=== PATIENT | male | born 1935 | race Two or more races ===

== ENCOUNTER 2016-10-08 10:18 | Inpatient (IN) | payer BC, MEDICAID ==
[~2016-10-08] VITALS: Ht 180.3 cm; Wt 90.7 kg
--- NOTE | 2016-10-08 10:18 | NUR ---
[id number] from home: aloc, bradycardia, low blood pressure, was unresponsive. bs 134 in field. pt given atropine 0.5 in field with some response. pacer pads placed. pt placed on monitor and gown. dr bah at bedside. ekg at bedside. iv right ac noted with saline flowing. continue to monitor.
[2016-10-08] MEDS ORDERED: ONDANSETRON HCL/PF 4 MG/2 ML VIAL ONE (10:24)
[2016-10-08] MEDS ORDERED: IV SET PRIMARY 1 EA INFUS.SET MC ONE (10:24)
[2016-10-08] MEDS ORDERED: IV NS 0.9% 1,000 ML ONE (10:24)
--- NOTE | 2016-10-08 10:25 | NUR ---
son at bedside. pt more alert and responsive at this time. vss.
[2016-10-08] MEDS ORDERED: IV NS 0.9% 1,000 ML BAG IV ONE (10:30)
[2016-10-08] MEDS ORDERED: ONDANSETRON HCL/PF 4 MG/2 ML VIAL IVP ONE (10:30)
[2016-10-08 10:50] LABS: BASOPHILS % (AUTO) 0.4 % (0.0-2.0); EOSINOPHILS # (AUTO) 0.1 /CMM (0.0-0.7); HEMATOCRIT 36 % (39-51); HEMOGLOBIN 12.5 g/dL (13.5-17.5); LYMPHOCYTES # (AUTO) 1.6 /CMM (0.8-4.8); LYMPHOCYTES % (AUTO) 24.4 % (20.0-44.0); MEAN CORPUSCULAR HEMOGLOBIN 33 PG (26.0-33.0); MEAN CORPUSCULAR HGB CONC 34 g/dl (31.0-36.0); MEAN CORPUSCULAR VOLUME 96 fL (80-96); MONOCYTES # (AUTO) 0.4 /CMM (0.1-1.30); MONOCYTES % (AUTO) 6.4 % (2.0-12.0); NEUTROPHILS # (AUTO) 4.3 /CMM (1.8-8.9); NEUTROPHILS % (AUTO) 66.8 % (43.0-81.0); PLATELET COUNT (AUTO) 114 /CMM (150-450); RDW COEFFICIENT OF VARIATION 10.9 (11.5-15.0); WHITE BLOOD COUNT (AUTO) 6.4 K/uL (4.3-11.0)
--- NOTE | 2016-10-08 10:54 | NUR ---
pt to ct
[2016-10-08 11:01] LABS: CALCIUM, SERUM 7.9 mg/dL (8.5-10.1); CARBON DIOXIDE 28 mmol/L (21-32); CHLORIDE 107 mmol/L (98-107); GLUCOSE 137 mg/dL (74-106); POTASSIUM 4.2 mmol/L (3.5-5.1); SODIUM SERUM 140 mmol/L (136-145); UREA NITROGEN, BLOOD 29 mg/dL (7-18)
[2016-10-08 11:03] LABS: INR 1.09 (0.87-1.13); PROTHROMBIN TIME 11.4 SECS (9.5-12.7)
[2016-10-08 11:08] LABS: TROPONIN I < 0.017 ng/mL (0.00-0.056)
[2016-10-08 11:13] LABS: LACTIC ACID 1.9 mmol/L (0.4-2.0)
[2016-10-08 11:21] LABS: ALANINE AMINOTRANSFERASE 13 U/L (12-78); ALBUMIN 3.2 g/dL (3.4-5.0); ALKALINE PHOSPHATASE 73 U/L (46-116); ASPARTATE AMINOTRANSFERASE 16 U/L (15-37); B-TYPE NATRIURETIC PEPTIDE 298 PG/ML (0-125); BILIRUBIN,DIRECT 0.2 mg/dL (0.0-0.2); BILIRUBIN,TOTAL 0.6 mg/dL (0.2-1.0); TOTAL PROTEIN, SERUM 6.5 g/dL (6.4-8.2)
--- NOTE | 2016-10-08 11:52 | NUR ---
DR PEDRO AT BEDSIDE
[2016-10-08] MEDS ORDERED: ASPIRIN 325 MG TABLET ONE (11:56)
[2016-10-08] MEDS ORDERED: ASPIRIN 325 MG TABLET PO ONE (12:00)
[2016-10-08] MEDS: ASPIRIN 81 MG TAB.CHEW PO SCH (12:00)
[2016-10-08] MEDS ORDERED: ONDANSETRON HCL/PF 4 MG/2 ML VIAL IVP PRN (12:00)
--- NOTE | 2016-10-08 12:02 | NUR ---
report given to stephie hope for louisa
[2016-10-08] MEDS ORDERED: PRAM0.258 PO (12:07)
[2016-10-08] MEDS ORDERED: RANI150C4 PO (12:07)
[2016-10-08] MEDS ORDERED: RANO10003 PO (12:07)
[2016-10-08] MEDS ORDERED: NITR0.4T6 SL (12:07)
--- NOTE | 2016-10-08 12:30 | NUR ---
SAFETY COORDINATOR NOTES RECEIVED PT FROM E.R. STAFF VIA [facility], AWAKE, ALERT AND ORIENTED, ACCOMPANIED BY FAMILY MEMBERS, ASSISTED TO BED, MADE COMFORTABLE, NO COMPLAINT OF PAIN, BREATHING PATTERN NORMAL AND NOT LABORED, ROOM SET UP ORIENTATION PROVIDED TO PT AND FAMILY, VERBALIZED UNDERSTANDING, VITAL SIGNS TAKEN AND RECORDED, NEEDS ATTENDED.
[2016-10-08 14:00] VITALS: BP 127/81
[2016-10-08 16:00] VITALS: BP 114/65
[2016-10-08] MEDS ORDERED: IV SET PRIMARY PUMP SET 1 EA INFUS.SET MC ONE (16:31)
[2016-10-08] MEDS: IV NS 0.9% 1,000 ML IV PRN (16:58)
--- NOTE | 2016-10-08 18:45 | NUR ---
CHILD CARE SUPERVISOR NOTES PT IN BED, RESTING, DENIES PAIN, NOT IN DISTRESS, TOLERATING CURRENT DIET WELL, SEEN BY DR. PEDRO, IV FLUIDS INFUSING WELL, CALL LIGHT WITHIN REACH, NEEDS ATTENDED.
[2016-10-08 19:00] VITALS: BP 148/82
--- NOTE | 2016-10-08 19:40 | NUR ---
RN OPENING NOTES RECEIVED REPORT FROM JAYDON RNLEONID. FOUND Pt AWAKE & ALERT IN BED. FAMILY AT BEDSIDE. Pt IS A/OX4, VERBAL, YAKUT SPEAKING ONLY. NO S/S OF ACUTE DISTRESS OR SOB NOTED. Pt DENIES ANY PAIN/CHEST PAIN AT THIS TIME. ON TELE SR 65. IV ACCESS ON RAC #18G, SL & L WRIST #20G WITH IVF NS @80ML/HR. SAFETY MEASURES IN PLACE. BED LOW, LOCKED, HOB ELEVATED, SIDE RAILS UP, CALL LIGHT WITHIN REACH. WILL CONTINUE TO MONITOR Pt THROUGHOUT THE NIGHT FOR SAFETY.
[2016-10-08 20:00] VITALS: BP 148/82
[2016-10-09] VITALS: BP 144/78
[2016-10-09 04:00] VITALS: BP 156/55
--- NOTE | 2016-10-09 06:56 | NUR ---
RN CLOSING NOTES NO SIGNIFICANT CHANGES NOTED DURING THE SHIFT. NO S/S OF ACUTE DISTRESS OR SOB NOTED. ALL NEEDS MET AND ATTENDED TO. SAFETY MEASURES IN PLACE. TELE READING SB 58 - SR 60's. WILL ENDORSE TO DAYSHIFT RN FOR Pt's RUTH ANN & SAFETY.
[2016-10-09 08:00] VITALS: BP 134/113
--- NOTE | 2016-10-09 08:01 | NUR ---
RN AM NOTES PATIENT RECEIVED AWAKE IN BED, ALERT AND ORIENTED X4. PATIENT ADMITTED WITH EPISODE OF SYNCOPE. NO MORE EPISODES AT THIS TIME. WILL CONTINUE TO MONITOR.
[2016-10-09] MEDS: ASPIRIN 81 MG TAB.CHEW PO SCH (09:37)
[2016-10-09] MEDS: IV NS 0.9% 1,000 ML IV PRN (09:37)
[2016-10-09 09:43] LABS: BASOPHILS % (AUTO) 0.1 % (0.0-2.0); EOSINOPHILS # (AUTO) 0.1 /CMM (0.0-0.7); EOSINOPHILS % (AUTO) 1.4 % (0.0-6.0); HEMATOCRIT 39 % (39-51); HEMOGLOBIN 13.4 g/dL (13.5-17.5); LYMPHOCYTES # (AUTO) 1.4 /CMM (0.8-4.8); MEAN CORPUSCULAR HEMOGLOBIN 33 PG (26.0-33.0); MEAN CORPUSCULAR HGB CONC 34 g/dl (31.0-36.0); MEAN CORPUSCULAR VOLUME 95 fL (80-96); MONOCYTES # (AUTO) 0.4 /CMM (0.1-1.30); NEUTROPHILS # (AUTO) 4.9 /CMM (1.8-8.9); NEUTROPHILS % (AUTO) 72.5 % (43.0-81.0); PLATELET COUNT (AUTO) 144 /CMM (150-450); RDW COEFFICIENT OF VARIATION 11.8 (11.5-15.0); WHITE BLOOD COUNT (AUTO) 6.8 K/uL (4.3-11.0)
[2016-10-09 09:51] LABS: CALCIUM, SERUM 8.7 mg/dL (8.5-10.1); CREATININE 1.9 mg/dL (0.6-1.3); POTASSIUM 4.1 mmol/L (3.5-5.1)
[2016-10-09 09:57] LABS: ALBUMIN 3.6 g/dL (3.4-5.0); BILIRUBIN,TOTAL 0.4 mg/dL (0.2-1.0); MAGNESIUM 2.1 mg/dL (1.8-2.4); PHOSPHORUS 2.3 mg/dL (2.5-4.9); TOTAL PROTEIN, SERUM 7.3 g/dL (6.4-8.2)
[2016-10-09 10:05] LABS: THYROID STIMULATING HORMONE 1.327 uIU/mL (0.358-3.74)
[2016-10-09] MEDS ORDERED: K PHOS NEUTRAL 250 MG TABLET PO ONE (12:00)
[2016-10-09 15:58] VITALS: BP 143/62
--- NOTE | 2016-10-09 16:06 | NUR ---
AIRLINE MECHANIC NOTES PATIENT LEFT HOSPITAL ACCOMPANIED BY FAMILY AND SHINGLES ROOFER IN WHEELCHAIR TO PRIVATE CAR. PATIENT IN STABLE CONDITION WITH PERSONAL BELONGINGS AND DISCHARGE PACKET. PATIENT LEFT HOSPITAL SAFELY.
== END 2016-10-09 15:50 | disposition home or self-care (01) | DRG 201 ==
LOC: ER 10:22 → MED 12:16 → TELE 12:55 → MED 10-09 08:42
PROVIDERS: ADMIT Internal Medicine; ATTEND Internal Medicine
DX: R00.1 Bradycardia, unspecified (principal); N17.0 Acute kidney failure with tubular necrosis; D64.9 Anemia, unspecified; I10 Essential (primary) hypertension; Z87.891 Personal history of nicotine dependence; G25.0 Essential tremor; E86.0 Dehydration; I25.10 Atherosclerotic heart disease of native coronary artery without angina pectoris; I34.0 Nonrheumatic mitral (valve) insufficiency; N40.0 Benign prostatic hyperplasia without lower urinary tract symptoms
CPT/HCPCS: 36415; 70450-TC; 71010-TC; 80048-TC; 80053-TC; 80061-TC; 80076-TC; 82962-TC; 83605-TC; 83735-TC; 83880; 84100-TC; 84439-TC; 84443-TC; 84484-TC; 85025-TC; 85730-TC; 86850-TC; 87040-TC; 87081-TC; 93307-TC; A4606; J2405; J7030; Z7610

== ENCOUNTER 2019-06-19 16:04 | Emergency (ER) | payer MEDICARE, OTHER ==
[~2019-06-19] VITALS: Ht 170.2 cm; Wt 81.6 kg
[~2019-06-19 16:04] MED LIST: PRAM0.258 PO; RANI150C4 PO; RANO10003 PO
[2019-06-19 16:13] VITALS: BP 132/87
--- NOTE | 2019-06-19 16:24 | NUR ---
ADRIANA EMT PERFORMING VISUAL ACUITY CURRENTLY
== END 2019-06-19 17:16 | disposition home or self-care (01) ==
LOC: ER 16:06
DX: H10.89 Other conjunctivitis (principal); B99.8 Other infectious disease; I10 Essential (primary) hypertension; F17.210 Nicotine dependence, cigarettes, uncomplicated; Z79.899 Other long term (current) drug therapy; Z71.6 Tobacco abuse counseling

== ENCOUNTER 2022-11-28 10:08 | Inpatient (IN) | payer MEDICARE, OTHER ==
[~2022-11-28] VITALS: Ht 170.2 cm; Wt 95.7 kg
--- NOTE | 2022-11-28 10:41 | NUR ---
IV ACCESS PLACED ON R HAND #18G. LAB AND BLOOD CULTURE DRAWN.
--- NOTE | 2022-11-28 10:42 | NUR ---
BLOOD SUGAR CHECK, 108.
--- NOTE | 2022-11-28 10:42 | NUR ---
COVID TEST COLLECTED AND SENT TO THE LAB
--- NOTE | 2022-11-28 10:43 | NUR ---
DAUGHTER AT BEDSIDE
[2022-11-28 10:59] LABS: BASOPHILS # (AUTO) 0.2 K/uL (0.0-0.2); BASOPHILS % (AUTO) 2.8 % (0.0-2.0); EOSINOPHILS % (AUTO) 1.8 % (0.0-6.0); HEMATOCRIT 32 % (39-51); HEMOGLOBIN 11.1 g/dL (13.5-17.5); LYMPHOCYTES # (AUTO) 0.7 K/uL (0.8-4.8); LYMPHOCYTES % (AUTO) 10.6 % (20.0-44.0); MEAN CORPUSCULAR HGB CONC 35 g/dl (31.0-36.0); MEAN CORPUSCULAR VOLUME 99 fL (80-96); MONOCYTES # (AUTO) 0.4 K/uL (0.1-1.30); NEUTROPHILS # (AUTO) 5.3 K/uL (1.8-8.9); NEUTROPHILS % (AUTO) 78.8 % (43.0-81.0); PLATELET COUNT (AUTO) 116 K/uL (150-450); RED BLOOD CELL COUNT(AUTO) 3.22 MIL/uL (4.5-6.0); WHITE BLOOD COUNT (AUTO) 6.7 K/uL (4.3-11.0)
[2022-11-28 11:02] LABS: CALCIUM, SERUM 8.9 mg/dL (8.5-10.1); CARBON DIOXIDE 25 mmol/L (21-32); CHLORIDE 108 mmol/L (98-107); CREATININE 1.7 mg/dL (0.6-1.3); GLUCOSE 135 mg/dL (74-106); POTASSIUM 4.5 mmol/L (3.5-5.1); SODIUM SERUM 142 mmol/L (136-145); UREA NITROGEN, BLOOD 29 mg/dL (7-18)
--- NOTE | 2022-11-28 11:16 | NUR ---
LACTIC ACID 2.3/ TROPONIN 2040. MADE AWARE
[2022-11-28] MEDS ORDERED: ENOXAPARIN SODIUM 80 MG/0.8 ML DISP.SYRIN SQ ONE ×2 (11:30→11:40)
[2022-11-28] MEDS ORDERED: FUROSEMIDE 40 MG/4 ML VIAL IV ONE (11:30)
[2022-11-28] MEDS ORDERED: ASPIRIN 81 MG TAB.CHEW PO ONE (11:30)
[2022-11-28] MEDS ORDERED: FUROSEMIDE 40 MG/4 ML VIAL ONE (11:40)
[2022-11-28] MEDS ORDERED: ASPIRIN 81 MG TAB.CHEW ONE (11:41)
[2022-11-28] MEDS ORDERED: MAG HYDROX/AL HYDROX/SIMETH 30 ML UDC PO PRN (13:00)
[2022-11-28] MEDS ORDERED: ACETAMINOPHEN 325 MG TABLET PO PRN (13:00)
[2022-11-28] MEDS ORDERED: Z GUARD REMEDY 4 OZ OINT TP PRN (13:00)
[2022-11-28] MEDS ORDERED: MAGNESIUM HYDROXIDE 30 ML UDC PO PRN (13:00)
[2022-11-28] MEDS ORDERED: ZOLPIDEM TARTRATE 5 MG TABLET PO PRN (13:00)
--- NOTE | 2022-11-28 13:12 | NUR ---
REPORT GIVEN TO EARL DIEZ.
[2022-11-28 13:30] VITALS: BP 149/93
--- NOTE | 2022-11-28 13:35 | NUR ---
RN NOTE- PT BROUGHT FROM ED FOR SOB, AFIB, AND CARDIAC EVALUATION. AOClinton,M FAROESE SPEAKING, FAMILY AT BEDSIDE, DENIES PAIN. . BEGIN ADMIT PROCESS.
--- NOTE | 2022-11-28 13:36 | NUR ---
PRODUCTION LINE NOTE 87 YEAR OLD MALE BROUGHT IN BY FAMILY FOR INCREASED SOB/WHEEZING. PT ADMITTED FOR DX NSTEMI. ON ARRIVAL PT A/OX4 INTERACTIVE AND DIRECTABLE. PT SPEAKS PASHTO. BP- 149/93, HR- ST 108, RR- 20, T- 97.7, 02 SATS 98% 2LPM VIA NC. PT DENIES PAIN. PMHX- AFIB, HTN, PARKINSON. IV #20 TO RT HAND. NO IVF AT PRESENT. AMBULATES TO BR THOUGH A BIT UNSTEADY. PT EVAL ORDERED. PLACED ON TELE MONITOR, LACTIC ACID 2.4, TROPONIN 2040. AWARE. ORDERS RECEIVED AND COMPLIED WITH. BED LOCKED, SIDE RAILS UP, CALL LIGHT IN REACH. MONITOR/ASSIST.
[2022-11-28] MEDS: PRAMIPEXOLE DI-HCL 0.25 MG TABLET PO SCH ×2 (13:50→16:42)
[2022-11-28] MEDS: CARVEDILOL 3.125 MG TABLET PO SCH ×2 (13:51→16:41)
--- NOTE | 2022-11-28 14:02 | NUR ---
PATIENT TRANSFERRED TO 322, STABLE.
[2022-11-28 14:27] LABS: BILIRUBIN,DIRECT 0.2 mg/dL (0.0-0.2); BILIRUBIN,TOTAL 1.1 mg/dL (0.2-1.0)
[2022-11-28 16:06] VITALS: BP 130/84
[2022-11-28] MEDS: RANOLAZINE 500 MG TAB.ER.12H PO SCH (16:41)
[2022-11-28] MEDS ORDERED: OMEP1CAP24 PO (16:43)
[2022-11-28] MEDS ORDERED: DONE10TA44 PO (16:43)
[2022-11-28] MEDS ORDERED: CYAN-51 PO (16:43)
[2022-11-28] MEDS ORDERED: DICL100G34 TP (16:43)
[2022-11-28] MEDS ORDERED: MAGN400T52 PO (16:43)
[2022-11-28] MEDS ORDERED: LOSA1TAB36 PO (16:43)
[2022-11-28] MEDS ORDERED: CHOL200010 PO (16:43)
[2022-11-28] MEDS ORDERED: LIDO30AD10 TP (16:43)
[2022-11-28] MEDS ORDERED: LINA72CA PO (16:43)
[2022-11-28] MEDS ORDERED: AMLO2.5T4 PO (16:43)
[2022-11-28] MEDS ORDERED: ATOR10TA PO (16:43)
[2022-11-28] MEDS ORDERED: QUET25TA PO (16:43)
[2022-11-28] MEDS ORDERED: ASPI-1420 PO (16:43)
[2022-11-28] MEDS ORDERED: FERR325T24 PO (16:43)
[2022-11-28] MEDS ORDERED: POLY15DR40 EACHEYE (16:43)
[2022-11-28] MEDS ORDERED: FOLI1TAB24 PO (16:43)
[2022-11-28] MEDS ORDERED: MECL-159 PO (16:43)
[2022-11-28] MEDS ORDERED: GABA300C PO (16:43)
[2022-11-28] MEDS: ONDANSETRON HCL/PF 4 MG/2 ML VIAL IVP PRN (18:48)
--- NOTE | 2022-11-28 19:08 | NUR ---
RN CLOSING NOTES NICA LAYING IN BED A/OX4. SPEAKS PERSIAN. FAMILY AT BEDSIDE TO HELP TRANSLATE. NO SIGNS OF SOB OR DISTRESS AT THE MOMENT. ON NC AT 2L 02 SATS 98% 2LPM VIA NC. PT DENIES PAIN. PMHX- AFIB, HTN, PARKINSON. IV #20 TO RT HAND. NO IVF AT PRESENT. AMBULATES TO BR THOUGH A BIT UNSTEADY. PT EVAL ORDERED. PLACED ON TELE MONITOR, LACTIC ACID 2.4, TROPONIN 2041. MD AWARE. ORDERS RECEIVED AND COMPLIED WITH. BED LOCKED, SIDE RAILS UP, CALL LIGHT IN REACH. WILL ENDORSE TO BOAT PERSON RUTH ANN.
--- NOTE | 2022-11-28 19:30 | NUR ---
FATS AND OILS LOADER OPENING NOTE RECEIVED PATIENT IN BED, AWAKE, ALERT AND ORIENTED, WITH DAUGHTER AT BEDSIDE. AFEBRILE AND NOT IN ANY FORM OF ACUTE DISTRESS. ON O2 INHALATION VIA NASAL CANNULA AT 2LPM. ON TELE MONITORING WITH CURRENT READING OF A-FIB 88. WITH IV ACCESS ON R HAND 20G-SL. SAFETY MEASURES IN PLACE. KEPT BED IN LOCKED AND IN LOW POSITION. SIDE RAILS UP X2. ADVISED TO USE THE CALL LIGHT WHEN IN NEED OF ASSISTANCE.
[2022-11-28 20:00] VITALS: BP 131/85
--- NOTE | 2022-11-28 20:58 | NUR ---
BUSINESS SUPPORT SPECIALIST NOTE CALLED PHARMACY TO CLARIFY ORDER FOR SEROQUEL THAT WAS SCHEDULED AT 2200 AND 2230 Q HS WITH THE SAME DOSE (25MG). PER PHARMACIST, IT MIGHT BE A DOUBLE ENTRY BUT JUST CLARIFY WITH MD. ALSO NOTIFIED CN AND ADVISED TO JUST GIVE 1 DOSE OF SEROQUEL 25MG HS SINCE THE ORDER IS THE SAME. NOTED AND CARRIED OUT.
[2022-11-28] MEDS: QUETIAPINE FUMARATE 25 MG TABLET PO SCH ×2 (21:38→21:39)
[2022-11-29] VITALS: BP 125/81
[2022-11-29 04:00] VITALS: BP 103/55
--- NOTE | 2022-11-29 06:20 | NUR ---
RECREATION AIDE CLOSING NOTE PATIENT IN BED, ASLEEP BUT EASY TO AROUSE AND RESPONSIVE. AFEBRILE AND NOT IN ANY FORM OF ACUTE DISTRESS. ON O2 INHALATION VIA NASAL CANNULA AT 2LPM. ON TELE MONITORING WITH CURRENT READING OF SR 69. WITH IV ACCESS ON R HAND 20G-SL. MEDICATED ORDERED. SAFETY MEASURES IN PLACE. KEPT BED IN LOCKED AND IN LOW POSITION. SIDE RAILS UP X2. ADVISED TO USE THE CALL LIGHT WHEN IN NEED OF ASSISTANCE. ALL NURSING NEEDS ATTENDED. ENDORSED TO INCOMING SHIFT FOR CONTINUITY OF CARE.
[2022-11-29 06:22] LABS: CALCIUM, SERUM 8.7 mg/dL (8.5-10.1); CARBON DIOXIDE 28 mmol/L (21-32); CHLORIDE 109 mmol/L (98-107); CREATININE 1.8 mg/dL (0.6-1.3); GLUCOSE 126 mg/dL (74-106); MAGNESIUM 2.2 mg/dL (1.8-2.4); PHOSPHORUS 3.6 mg/dL (2.5-4.9); POTASSIUM 4.1 mmol/L (3.5-5.1); SODIUM SERUM 143 mmol/L (136-145); UREA NITROGEN, BLOOD 29 mg/dL (7-18)
[2022-11-29 06:25] LABS: EOSINOPHILS % (AUTO) 2.1 % (0.0-6.0); HEMATOCRIT 28 % (39-51); HEMOGLOBIN 9.5 g/dL (13.5-17.5); LYMPHOCYTES % (AUTO) 38.3 % (20.0-44.0); MEAN CORPUSCULAR HGB CONC 34 g/dl (31.0-36.0); MEAN CORPUSCULAR VOLUME 101 fL (80-96); MONOCYTES # (AUTO) 0.5 K/uL (0.1-1.30); MONOCYTES % (AUTO) 10.2 % (2.0-12.0); NEUTROPHILS # (AUTO) 2.6 K/uL (1.8-8.9); NEUTROPHILS % (AUTO) 49.4 % (43.0-81.0); PLATELET COUNT (AUTO) 94 K/uL (150-450); RED BLOOD CELL COUNT(AUTO) 2.79 MIL/uL (4.5-6.0); WHITE BLOOD COUNT (AUTO) 5.3 K/uL (4.3-11.0)
[2022-11-29 07:30] VITALS: BP 119/70
--- NOTE | 2022-11-29 07:42 | NUR ---
OPENING NOTE PATIENT AWAKE A/Ox4, SLOVAK SPEAKING. DAUGHTER ABLE TO COMMUNICATE WITH PT, VIA PHONE, TO CONFIRM PATIENT UNDERSTOOD INFORMATION. ON 2L OF NC WITH NO S/S OF SOB. ON TELE CURRENTLY READING SR 86. IV ACCESS ON R HAND 20G, SL, INTACT AND PATENT, FLUSHING WELL. NO PAIN AT THE TIME. SKIN INTACT WITH BLE SWELLING. ON STRICT I&Os, USING URINAL. ABLE TO AMBULATE WITH ASSIST. FALL AND SAFETY PRECAUTIONS MAINTAINED: BED LOCKED AND AT THE LOWEST POSITION, SRx2, CALL LIGHT WITHIN REACH.
--- NOTE | 2022-11-29 08:05 | NUR ---
CRITICAL LAB CRITICAL LAB REPORTED BY DAKSHA MATA [id number]. REPORTED TO DR. BRITT. DR ACKNOWLEDGED ORDER. NO NEW ORDERS AT THIS TIME.
[2022-11-29] MEDS: GABAPENTIN 300 MG CAPSULE PO SCH ×2 (08:41→16:42)
[2022-11-29] MEDS: MAGNESIUM OXIDE 400 MG TABLET PO SCH ×2 (08:41→16:42)
[2022-11-29] MEDS: CARVEDILOL 3.125 MG TABLET PO SCH ×2 (08:41→16:43)
[2022-11-29] MEDS: PRAMIPEXOLE DI-HCL 0.25 MG TABLET PO SCH ×3 (08:41→12:58)
[2022-11-29] MEDS: AMLODIPINE BESYLATE 2.5 MG TABLET PO SCH (08:41)
[2022-11-29] MEDS: RANOLAZINE 500 MG TAB.ER.12H PO SCH ×2 (08:41→16:42)
[2022-11-29] MEDS: DONEPEZIL 5 MG TABLET PO SCH (08:41)
[2022-11-29] MEDS: ASPIRIN EC 81 MG TABLET.DR PO SCH (08:41)
[2022-11-29] MEDS: LIDOCAINE 5% (PATCH) 1 EA PATCH TP SCH (08:44)
[2022-11-29] MEDS ORDERED: ASPIRIN 81 MG TAB.CHEW PO SCH (09:00)
[2022-11-29] MEDS: FUROSEMIDE 40 MG/4 ML VIAL IV SCH (09:00)
[2022-11-29] MEDS ORDERED: Medication Not On Formulary EA (Linaclotide (Linzess) 72 MCG) PO SCH (09:00)
--- NOTE | 2022-11-29 09:07 | NUR ---
RN NOTE FUROSEMIDE ADMINISTERED FOR HEALTHCARE SOCIAL WORKER YADIEL, IV FLUSHING WELL, NO S/S OF INFILTRATION. PRIMARY NURSE YADIEL AWARE.
--- NOTE | 2022-11-29 09:47 | NUR ---
MEDICATION NOTE HELD CARVEDILOL, MONITORING BP.
[2022-11-29] MEDS: ENOXAPARIN SODIUM 80 MG/0.8 ML DISP.SYRIN SQ SCH (12:40)
--- NOTE | 2022-11-29 13:00 | NUR ---
MEDICATION NOTE PT REFUSED MEDICATION, STATING HE DOESN'T TAKE PARKINSON MEDICATION. FAMILY CALLED PRIMARY PHARMACY TO CONFIRM AND PRAMIPEXOLE ISNT BEING ADMINISTERED. MEDICATION WASTED.
[2022-11-29] MEDS: ONDANSETRON HCL/PF 4 MG/2 ML VIAL IVP PRN (14:31)
[2022-11-29 15:30] VITALS: BP 108/54
[2022-11-29 17:42] LABS: BILIRUBIN,URINE NEGATIVE (NEGATIVE); COLOR,URINE YELLOW (YELLOW); LEUKOCYTE ESTERASE ,URINE NEGATIVE (NEGATIVE); NITRITE, URINE NEGATIVE (NEGATIVE); PH,URINE 5.5 (5.0-8.0); PROTEIN,URINE NEGATIVE (NEGATIVE); UGLUCOSE NEGATIVE (NEGATIVE); UROBILINOGEN,URINE 0.2 EU/dL (0.2)
[2022-11-29 18:10] LABS: CREATININE, URINE 42.9 MG/DL (30.0-125.0)
[2022-11-29 18:19] LABS: EOSINOPHIL,URINE None Seen
--- NOTE | 2022-11-29 19:03 | NUR ---
CLOSING NOTE PATIENT AWAKE A/Ox4, YAKUT SPEAKING. DAUGHTER IN ROOM WITH PT. ON 2L OF NC WITH NO S/S OF SOB. ON TELE CURRENTLY READING SR 75. IV ACCESS ON R HAND 20G, SL, CLEAN AND INTACT. NO PAIN AT THE TIME. INTAKE: EST. 950 OUTPUT EST.1000. FALL AND SAFETY PRECAUTIONS MAINTAINED: BED LOCKED AND AT THE LOWEST POSITION, SRx2, CALL LIGHT WITHIN REACH.
[2022-11-29 20:00] VITALS: BP 101/60
--- NOTE | 2022-11-29 20:06 | NUR ---
Received Mr. Terrazas alert and orientated x4 daughter at nm side and she translates for me he ambulated the hallway w/o 02 sats 91 - 92% 02 nc replaced when back in room in bed new IV site left arm d/t SL rt hand was bothering him continent UA smiling and in good spirits SR on the tele monitor HR 75
[2022-11-29] MEDS: QUETIAPINE FUMARATE 25 MG TABLET PO SCH (21:34)
[2022-11-30] VITALS: BP 103/64
[2022-11-30 04:00] VITALS: BP 118/67
--- NOTE | 2022-11-30 04:59 | NUR ---
closing notes: alert and orientated X3 cooperative and friendly at the beginning of this 12 hr shift he ambulated in the hallway no SOB and w/o 02 sats 90% when asleep sats 89% w/o 02 wih 02 at 2 liters sat 98 -100% noted exp wheezing at times noted he will cough and the wheezing clears ankle edema 1+ ambulates with his can and stand by assist steady on his legs voided X1 at the beginning if the shift 200 ml in the urinal SR on the tele monitor HR 72 -75/beats per minute
--- NOTE | 2022-11-30 07:25 | NUR ---
ART GALLERY DIRECTOR OPENING NOTE RECEIVED PATIENT IN BED, SLEEPING, A/OX4. AFEBRILE, DENIES ANY PAIN OR DISCOMFORT, ON O2 AT 2LPM VIA NASAL CANNULA, NO SOB/ NOTED, BREATHING EVEN AND UNLABORED, PATIENT IS ON CUTTER OUT WITH CURRENT READING OFSR 65, WITH IV ACCESS ON LFA #20G AND ON SL, INTACT, PATENT AND FLUSHING WELL, SAFETY MEASURES IN PLACE, KEPT BED IN LOCKED AND IN LOW POSITION. SIDE RAILS UP X2, CALL LIGHT AND TABLE WITHIN EASY REACH, WILL CONTINUE TO MONITOR PATIENT.
[2022-11-30 08:30] VITALS: BP 107/73
[2022-11-30] MEDS: RANOLAZINE 500 MG TAB.ER.12H PO SCH ×2 (09:02→16:15)
[2022-11-30] MEDS: GABAPENTIN 300 MG CAPSULE PO SCH ×2 (09:02→16:14)
[2022-11-30] MEDS: DONEPEZIL 5 MG TABLET PO SCH (09:02)
[2022-11-30] MEDS: CARVEDILOL 3.125 MG TABLET PO SCH ×3 (09:03→17:00)
[2022-11-30] MEDS: MAGNESIUM OXIDE 400 MG TABLET PO SCH ×2 (09:03→16:14)
[2022-11-30] MEDS: ASPIRIN EC 81 MG TABLET.DR PO SCH (09:03)
[2022-11-30] MEDS: AMLODIPINE BESYLATE 2.5 MG TABLET PO SCH (09:03)
[2022-11-30] MEDS: FUROSEMIDE 40 MG/4 ML VIAL IV SCH (09:04)
[2022-11-30] MEDS: LIDOCAINE 5% (PATCH) 1 EA PATCH TP SCH (09:04)
[2022-11-30] MEDS: ENOXAPARIN SODIUM 80 MG/0.8 ML DISP.SYRIN SQ SCH (13:10)
[2022-11-30 16:08] VITALS: BP_SYST 104; BP_SYST 119; BP_DIAS 78
--- NOTE | 2022-11-30 18:39 | NUR ---
CLINICAL RESEARCH COORDINATOR CLOSING NOTE PATIENT IN BED, SLEEPING, A/OX4. AFEBRILE, DENIES ANY PAIN OR DISCOMFORT, ON O2 AT 2LPM VIA NASAL CANNULA, NO SOB/ NOTED, BREATHING EVEN AND UNLABORED, PATIENT IS ON HEPATOLOGIST WITH CURRENT READING OF SR WITH PAC'S 1 DEGREE HB WITH A HR OF 79, WITH IV ACCESS ON LFA #20G AND ON SL, INTACT, PATENT AND FLUSHING WELL, SAFETY MEASURES IN PLACE AND MAINTAINED AT ALL TIMES, KEPT BED IN LOCKED AND IN LOW POSITION. SIDE RAILS UP X2, CALL LIGHT AND TABLE WITHIN EASY REACH, SCHEDULED MEDICATIONS ADMINISTERED, PATEINT WAS TURNED AND REPOSITIONED PER PROTOCOL, ALL NEEDS ATTENDED AND ANTICIPATED, WILL ENDORSE TO REDUCING SALON ATTENDANT NURSE.
--- NOTE | 2022-11-30 19:35 | NUR ---
RN OPENING NOTE PATIENT AWAKE IN BED, DAUGHTER AT BEDSIDE. A/OX4. NO S/S OF DISTRESS, BREATHING WITHOUT DIFFICULTY ON 2L NC. LFA #20 SL INTACT AND PATENT. TELE READS SR 75 W/ PACs AND FIRST DEGREE AV BLOCK. SAFETY MEASURES IN PLACE: BED LOCKED AND AT LOWEST POSITION, RAILS UP X2, CALL HARTLEY WITHIN REACH. WILL CONTINUE TO MONITOR PATIENT.
[2022-11-30 20:00] VITALS: BP 117/76
[2022-11-30] MEDS: QUETIAPINE FUMARATE 25 MG TABLET PO SCH ×2 (21:42→22:30)
[2022-12-01] VITALS: BP 126/75
--- NOTE | 2022-12-01 01:10 | NUR ---
RN NOTE PATIENT HAS BECOME COMBATIVE. PATIENT TRIED SEVERAL TIMES TO STRIKE ME WITH HIS WALKING CANE. PATIENT HAS SLAMMED HIS ROOM DOOR AND BATHROOM DOOR. PATIENT DID NOT WANT TO GO TO BATHROOM, NOR WANTED TO HAVE ANYONE NEAR HIM. ON-CALL, ED, NOTIFIED. ORDER GIVEN FOR HALDOL 5MG IM.
[2022-12-01] MEDS ORDERED: HALOPERIDOL LACTATE INJ 5 MG/ML VIAL IM ONE (01:30)
--- NOTE | 2022-12-01 01:50 | NUR ---
RN NOTE HALDOL 5MG IM WAS ADMINISTERED. PATIENT BIT THIS RN IN THE PROCESS. PATIENT STABLE; WILL CONTINUE TO MONITOR PATIENT.
--- NOTE | 2022-12-01 03:05 | NUR ---
RN NOTE COMMUNICATED WITH ON-CALL, ED RCOOKS, REGARDING PATIENT'S BEHAVIOUR AND POSSIBLE PSYCH CONSULT D/T RECENT BEHAVIOUR. ON-CALL GAVE ORDER FOR PSYCH CONS. PATIENT O/W STABLE; WILL CONTINUE TO MONITOR PATIENT.
--- NOTE | 2022-12-01 04:01 | NUR ---
RN NOTE PATIENT REFUSED 0400 TELE VS. PATIENT IS STILL BEING MONITORED ON TELE. PATIENT O/W STABLE.
--- NOTE | 2022-12-01 06:25 | NUR ---
RN CLOSING NOTE PATIENT AWAKE IN BED. A/OX4. NO S/S OF DISTRESS, BREATHING WITHOUT DIFFICULTY ON 2L NC. LFA #20 SL INTACT AND PATENT. TELE READS SR 80 W/ PACs. SAFETY MEASURES IN PLACE: BED LOCKED AND AT LOWEST POSITION, RAILS UP X2, CALL HARTLEY WITHIN REACH. WILL ENDORSE TO NEXT SHIFT FOR RUTH ANN.
--- NOTE | 2022-12-01 07:12 | NUR ---
FASHION BUYER OPENING NOTES RECEIVED PATIENT AWAKE, SITTING CALM IN BED, A/O X4. PALAUAN SPEAKING. ABLE TO MAKE NEEDS KNOWN. TOLERATING ROOM AIR , NOT IN ANY FORM OF DISTRESS AT THIS TIME. NO SOB NOTED, BREATHING EVEN AND UNLABORED. WITH IV ACCESS LEFT FOREARM #20G ON SALINE LOCKED. PATIENT DENIES PAIN AT THIS TIME. SAFETY PRECAUTIONS IN PLACE: BED LOCKED AND IN LOW POSITION, SIDE RAILS UP X2, CALL LIGHT WITHIN REACH. WILL CONTINUE WITH THE PLAN OF CARE.
[2022-12-01 08:16] VITALS: BP 139/83
[2022-12-01] MEDS: GABAPENTIN 300 MG CAPSULE PO SCH ×2 (08:55→17:15)
[2022-12-01] MEDS: DONEPEZIL 5 MG TABLET PO SCH (08:56)
[2022-12-01] MEDS: RANOLAZINE 500 MG TAB.ER.12H PO SCH ×2 (08:56→17:18)
[2022-12-01] MEDS: MAGNESIUM OXIDE 400 MG TABLET PO SCH ×2 (08:57→17:15)
[2022-12-01] MEDS: AMLODIPINE BESYLATE 2.5 MG TABLET PO SCH (08:57)
[2022-12-01] MEDS: CARVEDILOL 3.125 MG TABLET PO SCH ×2 (08:59→17:17)
[2022-12-01] MEDS: FUROSEMIDE 40 MG/4 ML VIAL IV SCH (08:59)
[2022-12-01] MEDS: ASPIRIN EC 81 MG TABLET.DR PO SCH (09:01)
[2022-12-01] MEDS: LIDOCAINE 5% (PATCH) 1 EA PATCH TP SCH (09:20)
[2022-12-01] MEDS ORDERED: ENOXAPARIN SODIUM 100 MG/ML DISP.SYRIN SQ SCH (10:00)
[2022-12-01 10:01] LABS: EOSINOPHILS % (AUTO) 1.5 % (0.0-6.0); HEMATOCRIT 31 % (39-51); HEMOGLOBIN 10.4 g/dL (13.5-17.5); LYMPHOCYTES # (AUTO) 1.5 K/uL (0.8-4.8); LYMPHOCYTES % (AUTO) 23.7 % (20.0-44.0); MEAN CORPUSCULAR HGB CONC 33 g/dl (31.0-36.0); MEAN CORPUSCULAR VOLUME 102 fL (80-96); MONOCYTES # (AUTO) 0.5 K/uL (0.1-1.30); MONOCYTES % (AUTO) 7.9 % (2.0-12.0); NEUTROPHILS # (AUTO) 4.1 K/uL (1.8-8.9); NEUTROPHILS % (AUTO) 66.9 % (43.0-81.0); PLATELET COUNT (AUTO) 105 K/uL (150-450); RED BLOOD CELL COUNT(AUTO) 3.08 MIL/uL (4.5-6.0); WHITE BLOOD COUNT (AUTO) 6.2 K/uL (4.3-11.0)
[2022-12-01 10:13] LABS: CALCIUM, SERUM 8.9 mg/dL (8.5-10.1); CARBON DIOXIDE 26 mmol/L (21-32); CHLORIDE 108 mmol/L (98-107); GLUCOSE 178 mg/dL (74-106); POTASSIUM 3.9 mmol/L (3.5-5.1); SODIUM SERUM 143 mmol/L (136-145); UREA NITROGEN, BLOOD 28 mg/dL (7-18)
[2022-12-01 11:53] VITALS: BP 119/73
[2022-12-01 16:11] VITALS: BP 116/71
--- NOTE | 2022-12-01 18:52 | NUR ---
MANAGER OF CONSTRUCTION CLOSING NOTES PATIENT AWAKE, RESTING IN BED, A/O X4. KOSOVAN SPEAKING. ABLE TO MAKE NEEDS KNOWN. TOLERATING ROOM AIR , NOT IN ANY FORM OF DISTRESS AT THIS TIME. NO SOB NOTED, BREATHING EVEN AND UNLABORED. WITH IV ACCESS LEFT HAND #20G ON SALINE LOCKED. PATIENT DENIES PAIN NOR DISCOMFORT. NO UNTOWARD BEHAVIOUR NOTED. PATIENT ON TELE MONITORING READING SINUS RHYTHM AT 78. NEEDS ATTENTED AND PROVIDED. SAFETY PRECAUTIONS IN PLACE: BED LOCKED AND IN LOW POSITION, SIDE RAILS UP X2, CALL LIGHT WITHIN REACH. WILL CONTINUE WITH THE PLAN OF CARE.
--- NOTE | 2022-12-01 19:40 | NUR ---
FEED ELEVATOR WORKER OPENING NOTES PATIENT AWAKE, RESTING IN BED, A/O X 3-4. ENGLISH SPEAKER. ABLE TO MAKE NEEDS KNOWN. FAMILY AT BEDSIDE. ON ROOM AIR, BREATHING EVEN AND UNLABORED, NO DISTRESS/ SOB NOTED. IV ACCESS LEFT HAND #20G ON SALINE LOCKED, INTACT AND PATENT. PATIENT DENIES PAIN NOR DISCOMFORT. NO UNTOWARD BEHAVIOUR NOTED. PATIENT ON TELE MONITORING READING SINUS RHYTHM AT 80. SAFETY MEASURES IN PLACE WITH BED IN LOWEST LOCKED POSITION. SIDE RAILS UP X 2. CALL LIGHT AND TRAY WITHIN EASY REACH. WILL CONTINUE WITH THE PLAN OF CARE.
[2022-12-01 20:00] VITALS: BP 147/84
--- NOTE | 2022-12-01 20:20 | NUR ---
RN NOTES- SEROQUEL 25MG GIVEN EARLY BY SON AT BEDSIDE SPOKE TO THE SON AND REQUESTED TO HAVE THE MEDICATIONS GIVEN BEFORE HE LEAVES. PATIENT DOESN'T KNOW HOW TO SPEAK SYRIAC, GEORGIAN SPEAKER ONLY. PER THE DAY SHIFT, THERE'S AN INCIDENT LAST NIGHT (11/30) THAT THE PATIENT GOT AGITATED AND CONFUSED WHEN A NURSE CAME TO HIS ROOM WHICH MADE THE PATIENT AGITATED.
--- NOTE | 2022-12-01 20:30 | NUR ---
RN NOTES- SEROQUEL NOT GIVEN 11/30 PER MARCO A, SEROQUEL WAS NOT GIVEN 2230 11/30 BY THE SANITATION TECHNICIAN NURSE DUE TO CONFUSION OF THE MEDICATION THAT SHOULD BE ADMINISTERED 30 MINS APART FOR 50MG TAB (2 X 25MG).
[2022-12-01] MEDS: QUETIAPINE FUMARATE 25 MG TABLET PO SCH ×2 (20:42→20:56)
--- NOTE | 2022-12-01 20:58 | NUR ---
RN NOTES- SEROQUEL 25 MG GIVEN EARLY PER SON'S REQUEST SEROQUEL 25MG ADMINISTERED EARLY PER SON'S REQUEST PATIENT IS FRENCH SPEAKING. MEDICATION TAKEN. NO DISTRESS NOTED AT THIS TIME. WILL CONTINUE WOT MONITOR THE PATIENT.
[2022-12-02] VITALS: BP 121/76
[2022-12-02 05:54] LABS: EOSINOPHILS % (AUTO) 0.9 % (0.0-6.0); HEMATOCRIT 31 % (39-51); HEMOGLOBIN 10.6 g/dL (13.5-17.5); LYMPHOCYTES # (AUTO) 1.7 K/uL (0.8-4.8); LYMPHOCYTES % (AUTO) 23.6 % (20.0-44.0); MEAN CORPUSCULAR HGB CONC 34 g/dl (31.0-36.0); MEAN CORPUSCULAR VOLUME 100 fL (80-96); MONOCYTES # (AUTO) 0.6 K/uL (0.1-1.30); MONOCYTES % (AUTO) 8.2 % (2.0-12.0); NEUTROPHILS # (AUTO) 4.8 K/uL (1.8-8.9); NEUTROPHILS % (AUTO) 67.3 % (43.0-81.0); PLATELET COUNT (AUTO) 114 K/uL (150-450); RED BLOOD CELL COUNT(AUTO) 3.09 MIL/uL (4.5-6.0); WHITE BLOOD COUNT (AUTO) 7.1 K/uL (4.3-11.0)
[2022-12-02 06:10] LABS: CALCIUM, SERUM 9.3 mg/dL (8.5-10.1); CARBON DIOXIDE 24 mmol/L (21-32); CHLORIDE 107 mmol/L (98-107); CREATININE 1.8 mg/dL (0.6-1.3); GLUCOSE 140 mg/dL (74-106); MAGNESIUM 2.4 mg/dL (1.8-2.4); PHOSPHORUS 3.5 mg/dL (2.5-4.9); SODIUM SERUM 141 mmol/L (136-145); UREA NITROGEN, BLOOD 27 mg/dL (7-18)
--- NOTE | 2022-12-02 07:00 | NUR ---
MATERIALS ANALYST CLOSING NOTES PATIENT SLEEPING IN BED. EASILY AWAKEN BY VERBAL STIMULI. A/O X 3-4. LATVIAN SPEAKER. ON ROOM AIR, BREATHING EVEN AND UNLABORED, NO DISTRESS/ SOB NOTED. IV ACCESS LEFT HAND #20G ON SALINE LOCKED, INTACT AND PATENT. PATIENT DENIES PAIN NOR DISCOMFORT. NO UNTOWARD BEHAVIOR NOTED. PATIENT ON TELE MONITORING READING SINUS TACH AT 112. SAFETY MEASURES MAINTAINED DURING SHIFT. WILL ENDORSE TO THE NEXT SHIFT.
--- NOTE | 2022-12-02 07:20 | NUR ---
SEMICONDUCTOR WAFERS ETCH OPERATOR OPENING NOTES PATIENT AWAKE, RESTING IN BED, A/O X 3-4. CHINESE SPEAKER, CAN UNDERSTAND A LITTLE CAMEROONIAN. ABLE TO MAKE NEEDS KNOWN. ON ROOM AIR, BREATHING EVEN AND UNLABORED, NO DISTRESS/ SOB NOTED. IV ACCESS LEFT HAND #20G ON SALINE LOCKED, INTACT AND PATENT. PATIENT DENIES PAIN NOR DISCOMFORT. NO UNTOWARD BEHAVIOUR NOTED. PATIENT ON TELE MONITORING READING SINUS TACHYCARDIA AT 110. SAFETY MEASURES IN PLACE WITH BED IN LOWEST LOCKED POSITION. SIDE RAILS UP X 2. CALL LIGHT AND TRAY WITHIN EASY REACH. WILL CONTINUE WITH THE PLAN OF CARE.
--- NOTE | 2022-12-02 07:35 | NUR ---
RN NOTES NIGHT NURSE REFERRED PATIENT FOR WHEEZING. DR MADE ORDERS TO GIVE ALBUTEROL NEB 2.5MGQ6H PRN AND ATROVENT 0.5 MG Q6H PRN INITIAL TREATMENT. ORDERS NOTED ANDCARREID OUT. RT INFORMED OF BREATHING TREATMENT. WILL CONTINUETO MONITOR THE PATIENT
[2022-12-02 08:00] VITALS: BP 131/87
[2022-12-02] MEDS ORDERED: ALBUTEROL FS 2.5 MG/0.5 ML VIAL.NEB NEB PRN (08:30)
[2022-12-02] MEDS ORDERED: IPRATROPIUM NEB FS 0.5 MG/2.5 ML AMPUL.NEB NEB PRN (08:30)
[2022-12-02] MEDS: GABAPENTIN 300 MG CAPSULE PO SCH (09:24)
[2022-12-02] MEDS: ASPIRIN EC 81 MG TABLET.DR PO SCH (09:24)
[2022-12-02] MEDS: DONEPEZIL 5 MG TABLET PO SCH (09:24)
[2022-12-02 09:25] VITALS: BP 131/87
[2022-12-02] MEDS: AMLODIPINE BESYLATE 2.5 MG TABLET PO SCH (09:25)
[2022-12-02] MEDS: CARVEDILOL 3.125 MG TABLET PO SCH (09:25)
[2022-12-02] MEDS: MAGNESIUM OXIDE 400 MG TABLET PO SCH (09:25)
[2022-12-02] MEDS: RANOLAZINE 500 MG TAB.ER.12H PO SCH (09:26)
[2022-12-02] MEDS ORDERED: APIX2.5T PO (09:34)
[2022-12-02] MEDS ORDERED: CARV3.122 PO (09:34)
[2022-12-02] MEDS ORDERED: FURO-145 PO (09:38)
[2022-12-02] MEDS: LIDOCAINE 5% (PATCH) 1 EA PATCH TP SCH (10:11)
--- NOTE | 2022-12-02 13:12 | NUR ---
RN NOTE REFERRED PATIENT FOR CARDIOLOGY CLEARANCE PER HOSPITALIST. DR. GERARD REPLIED OK FOR DISCHARGE. CHARGE NURSE MADE AWARE
--- NOTE | 2022-12-02 14:00 | NUR ---
CAMPAIGN CONSULTANT NOTES PATIENT DISCHARGE IN STABLE MEDICAL CONDITION. A/O X 3-4, WITH EPISODES OF CONFUSION. V/S TAKEN, STABLE AND RECORDED. NO IV ACCESS. NAME ARM BAND REMOVED. EXTERNAL SLOT SUPERVISOR REMOVED AND RETURNED TO TELE DESK. PATIENT REFUSED SKIN ASSESSMENT AND PICTURES. ALL BELONGINGS CHECKED AND BELONGINGS LIST SIGNED. HEALTH TEACHING AND DISCHARGE INSTRUCTIONS GIVEN TO PATIENT, REYMUNDO(SON) AND CHELSEA (DAUGHTER OVER THE PHONE) AND ALL VERBALIZED UNDERSTANDING. DISCUSSED PRESCRIPTIONS WITH PATIENT AND UPDATED PHARMACY OF CHOICE.INFORMED MD OF PHARMACY PREFERENCE. INSTRUCTED PATIENT IN CASE OF EMERGENCY TO CALL 911 OR GO TO THE NEAREST ER. PATIENT LEFT UNIT VIA WHEELCHAIR WITH NO SIGNS OF DISTRESS, ACCOMPANIED BY 2 SOLAR ENGINEER AND SON. CHARGE NURSE AWARE OF DISCHARGED.
== END 2022-12-02 16:15 | disposition home health service (06) | DRG 280 ==
LOC: ER 10:12 → TELE 12:57
PROVIDERS: ADMIT Internal Medicine; ATTEND Internal Medicine
DX: I13.0 Hypertensive heart and chronic kidney disease with heart failure and stage 1 through stage 4 chronic kidney disease, or unspecified chronic kidney disease (principal); I50.23 Acute on chronic systolic (congestive) heart failure; I21.A1 Myocardial infarction type 2; N17.0 Acute kidney failure with tubular necrosis; E87.20 Acidosis, unspecified; F05 Delirium due to known physiological condition; I48.0 Paroxysmal atrial fibrillation; N18.9 Chronic kidney disease, unspecified; G20 Parkinson's disease; D53.9 Nutritional anemia, unspecified; I25.10 Atherosclerotic heart disease of native coronary artery without angina pectoris; I42.9 Cardiomyopathy, unspecified; N40.0 Benign prostatic hyperplasia without lower urinary tract symptoms; Z20.822 Contact with and (suspected) exposure to COVID-19; I25.119 Atherosclerotic heart disease of native coronary artery with unspecified angina pectoris
CPT/HCPCS: 36415; 71045-TC; 76770-TC; 80048-TC; 82247-TC; 82248-TC; 82533; 82570-TC; 83605-TC; 83735-TC; 83880; 84100-TC; 84300-TC; 84443-TC; 84484-TC; 85025-TC; 86705; 86803; 87040-TC; 87081-TC; 87806; 93307-TC; 94799-TC; 97116-TC; 97530-TC; C9803; G0378; J1630; J1650; J1940; J2405